=== PATIENT | male | born 1970 | race African-American/Black ===

== ENCOUNTER 2018-04-03 10:44 | Day surgery (SDC) | payer OTHER ==
[2018-04-02 10:39] VITALS: BMI 27.8
[2018-04-03] MEDS ORDERED: ePHEDrine SULFATE 50 MG/1 ML AMPULE ONE (11:13)
[2018-04-03] MEDS ORDERED: PROPOFOL 20 ML ONE ×4 (11:14→13:10)
[2018-04-03] MEDS ORDERED: MIDAZOLAM HCL 2 MG/2 ML SINGLE DOSE VIAL ONE ×3 (11:14→12:58)
[2018-04-03] MEDS ORDERED: SUCCINYLCHOLINE CHLORIDE 200 MG/10 ML VIAL ONE ×2 (11:14→13:03)
--- NOTE | 2018-04-03 12:44 | HP ---
History & Physical Update - History History: No Change - Physical Physical: No Change - Assessment Assessment: No Change - Plan Plan: No Change
--- NOTE | 2018-04-03 12:46 | OP ---
Operative Note - Note: Operative Date: 04/03/18 Pre-Operative Diagnosis: prostate cancer Operation: prostate cryoablation and cystoscopy Surgeon: Kory Downs Anesthesiologist/MACHINE ATTENDANT: Kimi Aceves MD Anesthesia: General Estimated Blood Loss (mls): 10 Drains & Tubes with Location: 18 fr hayes Operative Report Dictated: Yes
[2018-04-03] MEDS ORDERED: CLINDAMYCIN 600 MG PREMIX BAG IVPB ONE (13:11)
[2018-04-03] MEDS ORDERED: PROMETHAZINE HCL 25 MG/1 ML VIAL IVPB PRN (14:50)
[2018-04-03] MEDS ORDERED: ONDANSETRON 4 MG/2 ML VIAL IVPUSH PRN (14:50)
[2018-04-03] MEDS ORDERED: oxyCODONE HCL 5 MG TABLET PO PRN (14:50)
[2018-04-03 16:38] VITALS: TEMP 97.6
[2018-04-03] MEDS ORDERED: oxyCODONE HCL 5 MG TABLET ONE (17:04)
[2018-04-03] MEDS ORDERED: ONDANSETRON 4 MG/2 ML VIAL ONE (17:19)
[2018-04-03 18:32] VITALS: BP 132/78; PULSE 78
--- NOTE | 2018-04-03 19:47 | OP ---
DATE OF OPERATION: 04/03/2018 PREOPERATIVE DIAGNOSIS: Prostate cancer. POSTOPERATIVE DIAGNOSIS: Prostate cancer. PROCEDURE: Prostate cryoablation and cystoscopy. SURGEON: Kory Dukes MD ACADEMIC GUIDANCE SPECIALIST: None. ANESTHESIA: General via laryngeal mask. ANESTHESIOLOGIST: Kimi Aceves MD SPECIMENS: None. CULTURES: None. DRAINS: An 18-[place] catheter. ESTIMATED BLOOD LOSS: 10 mL COMPLICATIONS: None. DESCRIPTION OF PROCEDURE: Patient was brought in the operating room, placed on the operating table in a supine position. After administration of intravenous antibiotics, sequential compression devices were placed, and the patient was administered general anesthesia via laryngeal mask, then placed in dorsal lithotomy position. Perineum was shaved first. Then, the perineum and genitals were prepped and draped in the usual sterile manner. An 18-[place] catheter was placed per urethra, and 10 mL were placed in the balloon. Then, the bladder was filled with 300 mL of sterile normal saline and clamped. Now, a transrectal ultrasound was done, and planning was prostate cryoablation. After a plan was determined, the grid was placed, and the 6 CryoProbes were placed in the appropriate location under ultrasound guidance. Measurements were taken, and the appropriate settings were placed on the probes. The temperature sensors were now placed in [place]ers fascia and the external sphincter. Now, the [place] catheter was removed. Flexible cystoscopy was done, demonstrated no probes had traversed the prostatic urethra or bladder. The bladder was entered, thoroughly inspected. There were no foreign bodies, tumors, stones, or inflammation. Both ureteral orifices were in their usual location with clear efflux bilaterally. The prostatic urethra measured approximately 4.5 to 5 cm in length and demonstrated moderate bilobar occlusion. Now, the Super Stiff guidewire was passed through the cystoscope, coiled within the bladder, and the cystoscope removed. Urethral warmer was now placed over the Super Stiff guidewire, and the guidewire was removed. Urethral warmer was started. Now, probe positions were confirmed once again under ultrasound, and then, the cryoablation was done with 2 freeze/thaw cycles. At the end of the procedure, all probes and temperature sensors were removed. The urethral warmer was left in place for an additional 5 minutes. The left side of the prostate neurovascular bundle was spared. The patient tolerated the procedure well. An 18-[place] catheter was replaced, placed on gravity drainage which returned minimally blood tinge. A sterile compressive dressing was placed on the perineum, 4 x 4, and Tegaderm. He tolerated the procedure well, was transferred to Recovery in stable condition. KORY DUKES M.D. [id number]
== END 2018-04-03 18:50 | disposition home or self-care (01) ==
LOC: JASU-SURG 10:44
PROVIDERS: ATTEND Urology
PROC: 0V503ZZ Destruction of Prostate, Percutaneous Approach (ICD-10-PCS; principal; 2018-04-03 12:00)
DX: C61 Malignant neoplasm of prostate (principal)
CPT/HCPCS: 55873; C2618; 94760